=== PATIENT | male | born 1980 | race Caucasian/White ===

== ENCOUNTER 2020-11-11 18:16 | Emergency (ER) | payer BC ==
--- NOTE | 2020-11-11 20:29 | EDM.PDOC ---
ED HPI GENERAL MEDICAL PROBLEM - General Chief Complaint: Respiratory Problem Stated Complaint: COVID + BREATHING DIFFICULTIES Time Seen by Provider: 11/11/20 20:07 Source of Information: Reports: Patient History Limitations: Reports: No Limitations - History of Present Illness INITIAL COMMENTS - FREE TEXT/NARRATIVE: Ms. Munson is a very pleasant 40-year-old man who states that he developed generalized body aches without a fever this past 11/06/2020. He was tested for the SARS-CoV-2 virus per his employer, which returned positive. He has been resting at home since. He then developed nausea with dry heaves and a cough productive of greenish/yellowish sputum today. Still no fever. No recent headache. He states that sipping fluids induces a paroxysm of cough. He has not taken any asju-pia-whqvxex or home remedies to address his symptoms. Here in the ED, the patient's initial BP is found to be mildly elevated at 141/86, with slight tachypnea of 22 rpm. He is afebrile, saturating 94% on room air. He appears to be comfortable, no acute distress. Prior to Friday, the patient denies having a recent fever, chills, sore throat, ear pain, nasal or sinus congestion, cough, dyspnea, chest pain, palpitations, nausea, vomiting, constipation, diarrhea, abdominal pain, urinary symptoms, recent weight gain or weight loss, recent bloody bowel movements or black bowel movements, recent joint aches, headaches, or rashes. The patient does not have a PCP. He has not received a COVID vaccination, and states that he does not intend to. - Related Data Allergies Allergy/AdvReac Type Severity Reaction Status Date / Time No Known Allergies Allergy Verified 11/11/20 18:52 Home Meds: Home Meds Ondansetron [Zofran ODT] 1 tab PO Q8H PRN #10 tab.dis 11/11/20 [Rx] Past Medical History HEENT History: Reports: Impaired Vision (wears glasses) - Infectious Disease History Infectious Disease History: Reports: Chicken Pox, Novel Coronavirus (dx'd 11/06/2020) - Past Surgical History HEENT Surgical History: Reports: Oral Surgery (dental extractions) GI Surgical History: Reports: Appendectomy Male Surgical History: Reports: Vasectomy (+ reversal) Social & Family History - Tobacco Use Tobacco Use Status *Q: Former Tobacco User Years of Tobacco use: 2 Packs/Tins Daily: 0.2 Month/Year Tobacco Last Used: Quit 2002 Tobacco Use Comment: Started smoking 2000 - Caffeine Use Caffeine Use: Reports: Coffee - Alcohol Use Alcohol Use History: Yes Alcohol Use Frequency: Socially - Recreational Drug Use Recreational Drug Use: No - Living Situation & Occupation Living situation: Reports: , with Family (2 kids) Occupation: Employed ([employer]) ED ROS GENERAL - Review of Systems Review Of Systems: Comprehensive ROS is negative, except as noted in HPI. ED EXAM, GENERAL - Physical Exam Exam: See Below Exam Limited By: No Limitations General Appearance: Alert, WD/WN, No Apparent Distress Eye Exam: Bilateral Eye: EOMI, Normal Inspection Ears: Normal External Exam, Hearing Grossly Normal Nose: Normal Inspection Throat/Mouth: Normal Inspection, Normal Lips, Normal Voice, No Airway Compromise Head: Atraumatic, Normocephalic Neck: Normal Inspection, Full Range of Motion Respiratory/Chest: No Respiratory Distress, Lungs Clear, Normal Breath Sounds, No Accessory Muscle Use. No: Decreased Breath Sounds, Crackles, Rhonchi, Wheezing, Stridor, Prolonged Expiration Cardiovascular: Normal Peripheral Pulses, Regular Rate, Rhythm, No Edema, No Gallop, No JVD, No Murmur, No Rub Peripheral Pulses: 3+: Radial (L), Radial (R) GI/Abdominal: Normal Bowel Sounds, Soft, Non-Tender, No Organomegaly, No Distention, No Abnormal Bruit, No Mass Back Exam: Normal Inspection, Full Range of Motion, NT Extremities: Normal Inspection, Normal Range of Motion, No Pedal Edema, Normal Capillary Refill Neurological: Alert, Oriented, Normal Cognition, No Motor/Sensory Deficits Psychiatric: Normal Affect Skin Exam: Warm, Dry, Intact, Normal Color, No Rash #1 Interpretation EKG Date: 11/11/20 Time: 18:41 Rhythm: NSR Rate (Beats/Min): 95 [place]: Normal P-Wave: Present QRS: Normal ST-T: Normal QT: Normal Comparison: NA - No Prior EKG Course - Vital Signs Last Recorded V/S: Last Vital Signs Temp 36.2 C 11/11/20 18:25 Pulse 89 11/11/20 20:45 Resp 23 H 11/11/20 20:45 BP 128/83 11/11/20 20:45 Pulse Ox 94 L 11/11/20 20:45 - Orders/Labs/Meds Meds: Medications Discontinued Medications Generic Name Dose Route Start Last Admin Trade Name Natalie PRN Reason Stop Dose Admin Ondansetron HCl 4 mg 11/11/20 20:30 11/11/20 20:50 Ondansetron 4 Mg Tab.Dis PO 11/11/20 20:31 4 mg ONETIME ONE Administration - Re-Assessments/Exams Free Text/Narrative Re-Assessment/Exam: 11/11/20 20:22 As above, the patient developed generalized body aches this past Friday, and was tested positive for COVID-19 by his employer that same day. His symptoms persisted until today, when he developed nausea with dry heaves and a cough productive of greenish sputum. Sipping fluids induces paroxysms of coughing. No recent fever. Based on the patient's BMI, he is a candidate for an infusion of the monoclonal antibody Regen-Cov. We discussed that at length, including th at it is an emergency use authorization medication, intended to decrease the likelihood of patients diagnosed with COVID-19 from developing severe symptoms or , and that it does not treat current symptoms. I explained that Regen- Cov is still under investigation, that it is not fully FDA approved, and that the potential benefits and risks of the medication are not fully known. The patient was notified that if he receives Regen-Cov, that it may decrease his immune response to a COVID vaccination, should he decide to get it after he recovers from his current illness. I explained that there is a possibility that he could have an allergic reaction either during or after the infusion, as well as brief pain, bleeding, bruising of the skin, soreness, swelling, and possible infection at the infusion site. Other side effects could occur. I discussed that there are other potential treatment options that are currently not FDA approved to treat COVID-19. The patient was notified that the infusion takes about 1 hour, after which he would be expected to remain in the ED for another hour to observe for possible side effects. He was offered the "patient and caregiver [facility] Regen-Cov fact sheet" to read and review. All questions were answered. The patient expressed understanding, but decided to NOT receive the infusion. Because he is not hypoxemic, he is not a candidate for treatment with dexamethasone. I explained that, unfortunately, there are not a lot of options to treat his current symptoms. He can take OTC ibuprofen as needed for body aches, but, ultimately, the main treatment is time. 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 He will be given a pulse oximeter prior to discharge. Departure - Departure Time of Disposition: 20:25 Disposition: Home, Self-Care 01 Condition: Good Clinical Impression: COVID-19 - Discharge Information *PRESCRIPTION DRUG MONITORING PROGRAM REVIEWED*: Not Applicable *COPY OF PRESCRIPTION DRUG MONITORING REPORT IN PATIENT NORA: Not Applicable Prescriptions: Ondansetron [Zofran ODT] 1 tab PO Q8H PRN #10 tab.dis PRN Reason: Nausea/Vomiting Instructions: COVID-19, COVID-19: How to Protect Yourself and Others - [facility] Referrals: PCP,None [Primary Care Provider] - Forms: ED Department Discharge Additional Instructions: You were seen in the emergency room for body aches, nausea with dry heaves, and a cough productive of greenish/yellowish sputum, in the setting of being diagnosed with COVID-19 this past Friday. Treatment with an infusion of the monoclonal antibody Regen-Cov was offered, but declined. You have been started on the anti-nausea medicine Zofran ODT, and a prescription for Zofran ODT has been sent to the [facility] located just south and across the [address] from [facility]. The pharmacy will be open between noon and 4 PM tomorrow, 11/12/2020. You may dissolve 1 tablet of Zofran ODT on your tongue up to every 8 hours, as needed for nausea/vomiting. Stay adequately hydrated. You may take [id number] ibuprofen as needed for body aches. As discussed, it is imperative that you strictly isolate. Do not return to society until you have tested negative for the virus, which takes 10 days, on average, from the onset of your symptoms. You have been provided with a pulse oximeter. We recommend that you check your oxygen saturation several times a day. If your oxygen saturation drops down to 90% or lower, consistently, please return to the ER for reevaluation. Sepsis Event Note (ED) - Evaluation Sepsis Screening Result: No Definite Risk - Focused Exam Vital Signs: Vital Signs Pulse Resp BP Pulse Ox 11/11/20 20:45 89 23 H 128/83 94 L
[2020-11-11] MEDS ORDERED: Ondansetron 4 MG Tab.DIS PO ONE (20:30)
[2020-11-11 21:28] VITALS: BP 128/83; PULSE 89
== END 2020-11-11 21:05 | disposition home or self-care (01) ==
LOC: JD.ED 18:16
DX: U07.1 COVID-19 (principal); Z87.891 Personal history of nicotine dependence
CPT/HCPCS: 93005; 99283; A9270; 93010